=== PATIENT | male | born 1955 | race Caucasian/White ===

== ENCOUNTER 2016-09-02 04:15 | Inpatient (IN) | payer OTHER ==
[~2016-09-02] VITALS: Ht 180.3 cm; Wt 80.4 kg
[2016-09-02] MEDS ORDERED: CRESTOR40 MG PO (04:25)
[2016-09-02] MEDS ORDERED: AMLODIPINE BESY10 MG PO (04:25)
[2016-09-02 06:01] LABS: HEMATOCRIT 44.4 % (38.0-50.0); MCH 28.9 PG (29.0-34.0); MCHC 32.7 G/DL (30.0-36.0); MCV 88.6 FL (86-99); MEAN PLAT.VOLUME 9.1 uM^3 (9.0-12.4); PLATELET COUNT 302 K/uL (156-360); RBC DIS.WIDTH-CV 12.1 % (11.8-14.6); RBC DIS.WIDTH-SD 39.6 % (39-53); RED BLOOD COUNT 5.01 M/uL (4.00-5.50); WHITE BLOOD COUNT 18.3 K/uL (4.1-10.2)
[2016-09-02 06:07] LABS: CHLORIDE 106 mEq/L (99-109); POTASSIUM 4.1 mEq/L (3.7-5.4); SODIUM 141 mEq/L (136-147)
[2016-09-02 06:09] LABS: GLUCOSE 132 mg/dL (70-99)
[2016-09-02 06:11] LABS: ANION GAP 14 MEQ/L (2-14)
[2016-09-02 06:13] LABS: GFR ESTIMATE (CALCULATED) 44 mL/min/
[2016-09-02 06:14] LABS: UREA NITROGEN (BUN) 19 mg/dL (9-23)
[2016-09-02 07:03] LABS: ADD MIUA? NO; BILIRUBIN NEGATIVE; BLOOD NEGATIVE; COLOR STRAW ((YELLOW)); GLUCOSE (STRIP) 50; KETONES NEGATIVE; LEUKOCYTES NEGATIVE; NITRITE NEGATIVE; PROTEIN (STRIP) NEGATIVE; SPECIFIC GRAVITY 1.013 (1.000-1.030); UCUL ADDED? NO; UROBILINOGEN 0.2 MG/DL (0.2-1.0)
[2016-09-02 09:48] VITALS: BP 123/72
[2016-09-02 16:16] VITALS: BP 163/84
[2016-09-02] MEDS ORDERED: VITAMIN D31000 UNI2 PO (18:21)
[2016-09-02] MEDS ORDERED: VITAMIN E400 UNIT PO (18:22)
[2016-09-02] MEDS ORDERED: METAMUCIL FIBE3.4 GM PO (18:24)
[2016-09-02] MEDS ORDERED: TYLENOL REGULA325 MG PO (18:25)
[2016-09-02 20:43] VITALS: BP 136/78
[2016-09-03] VITALS (9 sets, daily range): BP systolic 131–166; BP diastolic 58–99
[2016-09-03 06:49] LABS: EOSINOPHIL (%) 0.2 % (0-5); HEMATOCRIT 38.9 % (38.0-50.0); IMMATURE GRANULOCYTE (%) 0.3 % (0.0-0.7); INSTRUMENT ABS NEUTROPHIL CT 9.1 K/uL; LYMPHOCYTE COUNT 1.2 K/uL (1.0-2.8); MCH 29.1 PG (29.0-34.0); MCHC 32.9 G/DL (30.0-36.0); MCV 88.4 FL (86-99); MEAN PLAT.VOLUME 9.4 uM^3 (9.0-12.4); MONOCYTE COUNT 1.3 K/uL (0-0.8); NEUTROPHIL (%) 78.3 % (45-76); NEUTROPHIL COUNT 9.1 K/uL (1.8-6.4); PLATELET COUNT 247 K/uL (156-360); RBC DIS.WIDTH-CV 12.4 % (11.8-14.6); RBC DIS.WIDTH-SD 40.1 % (39-53)
[2016-09-03 06:50] LABS: WHITE BLOOD COUNT 11.6 K/uL (4.1-10.2)
[2016-09-03 07:10] LABS: ANION GAP 9 MEQ/L (2-14); CHLORIDE 107 MEQ/L (99-109); GFR ESTIMATE (CALCULATED) 55 mL/min/; GLUCOSE 105 mg/dL (70-99); POTASSIUM 4.2 MEQ/L (3.7-5.4); SAMPLE HEMOLYSIS CHECK 0; SAMPLE ICTERIC CHECK 0; SAMPLE LIPEMIA CHECK 0; SODIUM 142 MEQ/L (136-147); UREA NITROGEN (BUN) 15 mg/dL (9-23)
[2016-09-04 07:10] VITALS: BP 122/64
[2016-09-04 07:20] LABS: EOSINOPHIL (%) 0.1 % (0-5); HEMATOCRIT 38.3 % (38.0-50.0); IMMATURE GRANULOCYTE (%) 0.3 % (0.0-0.7); INSTRUMENT ABS NEUTROPHIL CT 7.8 K/uL; LYMPHOCYTE COUNT 1.3 K/uL (1.0-2.8); MCH 28.7 PG (29.0-34.0); MCHC 32.6 G/DL (30.0-36.0); MEAN PLAT.VOLUME 9.6 uM^3 (9.0-12.4); MONOCYTE (%) 8.5 % (3-12); MONOCYTE COUNT 0.9 K/uL (0-0.8); NEUTROPHIL (%) 77.8 % (45-76); NEUTROPHIL COUNT 7.8 K/uL (1.8-6.4); PLATELET COUNT 272 K/uL (156-360); RBC DIS.WIDTH-CV 12.3 % (11.8-14.6); RBC DIS.WIDTH-SD 39.4 % (39-53); RED BLOOD COUNT 4.35 M/uL (4.00-5.50)
[2016-09-04] MEDS ORDERED: CEFTIN500 MG PO (07:35)
[2016-09-04] MEDS ORDERED: TAMSULOSIN HCL0.4 MG PO (07:35)
[2016-09-04 07:44] LABS: ANION GAP 11 MEQ/L (2-14); CHLORIDE 105 MEQ/L (99-109); GFR ESTIMATE (CALCULATED) > 59 mL/min/; GLUCOSE 93 mg/dL (70-99); POTASSIUM 4.3 MEQ/L (3.7-5.4); SAMPLE HEMOLYSIS CHECK 0; SAMPLE ICTERIC CHECK 0; SAMPLE LIPEMIA CHECK 0; SODIUM 143 MEQ/L (136-147); UREA NITROGEN (BUN) 13 mg/dL (9-23)
[2016-09-05] MEDS ORDERED: CEFTIN500 MG PO (15:57)
[2016-09-05] MEDS ORDERED: FLOMAX0.4 MG PO (15:58)
== END 2016-09-04 12:32 | disposition home or self-care (01) | DRG 693 ==
LOC: EME 04:15 → EDOF 08:28 → 5EAST 08:28 → EDOF 08:33 → 5EAST 09:30
PROVIDERS: Emergency Medicine; Internal Medicine
PROC: 0T768DZ Dilation of Right Ureter with Intraluminal Device, Via Natural or Artificial Opening Endoscopic (ICD-10-PCS; principal; 2016-09-03)
DX: N20.0 Calculus of kidney (principal); J18.9 Pneumonia, unspecified organism; N17.9 Acute kidney failure, unspecified; E86.0 Dehydration; I25.10 Atherosclerotic heart disease of native coronary artery without angina pectoris; I10 Essential (primary) hypertension; E78.5 Hyperlipidemia, unspecified; Z87.891 Personal history of nicotine dependence; Z79.82 Long term (current) use of aspirin; Z95.5 Presence of coronary angioplasty implant and graft
CPT/HCPCS: 71020; 74176; 80048; 81003; 83605; 85025; 85027; 87040; 99281; 99285; C1876; J0696; J1100; J1644; J1885; J1956; J2250; J2270; J2405; J3010; J7030; J7050

== ENCOUNTER → 2016-09-10 | Outpatient (CLI) | payer OTHER ==
[~2016-09-10] VITALS: Ht 180.3 cm; Wt 76.2 kg
[~2016-09-10] MED LIST: AMLODIPINE BESY10 MG PO; CEFTIN500 MG PO; CRESTOR40 MG PO; FLOMAX0.4 MG PO; METAMUCIL FIBE3.4 GM PO; TAMSULOSIN HCL0.4 MG PO; TYLENOL REGULA325 MG PO; VITAMIN D31000 UNI2 PO; VITAMIN E400 UNIT PO
== END | disposition home or self-care (01) ==
LOC: AMB 10:18
PROC: 0TF6XZZ Fragmentation in Right Ureter, External Approach (ICD-10-PCS; principal; 2016-09-10)
DX: N20.1 Calculus of ureter (principal)
CPT/HCPCS: 74010; J0461; J2250; J3010

== ENCOUNTER → 2016-10-11 | Outpatient (CLI) | payer OTHER ==
[~2016-10-11] VITALS: Ht 180.3 cm; Wt 77.3 kg
[~2016-10-11] MED LIST changes: +LO-DOSE ASPIRIN81 M2 PO
[2016-10-11 14:59] LABS: MCH 28.7 PG (29.0-34.0); MCHC 33.5 G/DL (30.0-36.0); MCV 85.7 FL (86-99); PLATELET COUNT 327 K/uL (156-360); RBC DIS.WIDTH-SD 37.7 % (39-53); RED BLOOD COUNT 5.02 M/uL (4.00-5.50); WHITE BLOOD COUNT 7.7 K/uL (4.1-10.2)
[2016-10-11 15:08] LABS: INTER. NORMALIZED RATIO 1.1; PROTHROMBIN TIME 10.8 (9.2-11.2); PTT 29.4 (25-32)
== END | disposition home or self-care (01) ==
LOC: AMB 14:18
PROVIDERS: Internal Medicine Pulmonary Disease
DX: R91.8 Other nonspecific abnormal finding of lung field (principal); Z87.891 Personal history of nicotine dependence; I10 Essential (primary) hypertension; I25.10 Atherosclerotic heart disease of native coronary artery without angina pectoris; Z95.5 Presence of coronary angioplasty implant and graft; Z83.3 Family history of diabetes mellitus; Z80.9 Family history of malignant neoplasm, unspecified
CPT/HCPCS: 71010; 76001; 85027; 85610; 85730; 87070; 87102; 87116; 87205; 87206; 87278; 88108; J2175; J2250; J2310; J2550; J3010